=== PATIENT | male | born 1990 | race Caucasian/White ===

== ENCOUNTER 2018-05-30 17:59 | Emergency (ER) | payer BC, OTHER ==
[2018-05-30] MEDS ORDERED: Zofran 4 MG/2 ML VIAL IV ONE (18:16)
[2018-05-30] MEDS ORDERED: MORPHINE SULFATE 10 MG/ML ONE (18:16)
[2018-05-30] MEDS ORDERED: MORPHINE SULFATE 10 MG/ML IM ONE (18:16)
[2018-05-30] MEDS ORDERED: Sodium Chloride 0.9% 1000 ML 1,000 ML IV STA (18:16)
[2018-05-30] MEDS ORDERED: Zofran 4 MG/2 ML VIAL ONE (18:16)
--- NOTE | 2018-05-30 18:16 | ERPHSYRPT ---
- History of Present Illness Time Seen by Provider: 05/30/18 18:11 Source: patient, family Exam Limitations: clinical condition Physician History: The patient is a 27-year-old right-handed male with his complaining that he was thrown from his horse while in the barn just prior to arrival. He does not remember any of the event specifically. He complains of a headache. He thinks he was knocked unconscious. He complains of severe right shoulder pain. He is unable to move his right arm. He is mildly nauseated. Occurred: just prior to arrival Reason for Fall: lost balance, fell from height (from a horse) Injuries/Pain Location: head, upper extremity (right shoulder) Loss of Consciousness: brief (seconds) (unsure of duration) Quality: sharpness, stabbing Severity of Pain-Max: severe Severity of Pain-Current: severe Modifying Factors: Improves With: nothing Associated Symptoms (Fall): confusion, extremity injury, headache, nausea Allergies/Adverse Reactions: No Known Drug Allergies Allergy (Verified 05/30/18 18:22) Home Medications: No Reportable Medications [No Reported Medications] 05/30/18 [History] - Review of Systems Constitutional: No Fever, No Chills Eyes: No Symptoms Ears, Nose, & Throat: No Symptoms Respiratory: No Cough, No Dyspnea Cardiac: No Chest Pain, No Edema, No Syncope Abdominal/Gastrointestinal: No Abdominal Pain, No Nausea, No Vomiting, No Diarrhea Genitourinary Symptoms: No Dysuria Musculoskeletal: Fall, Injury Skin: No Rash Neurological: Headache Psychological: No Symptoms Endocrine: No Symptoms Hematologic/Lymphatic: No Symptoms Immunological/Allergic: No Symptoms All Other Systems: Reviewed and Negative - Nursing Vital Signs Nursing Vital Signs: Initial Vital Signs Pulse Rate 92 H 05/30/18 18:08 Blood Pressure 160/107 05/30/18 18:08 O2 Sat by Pulse Oximetry 99 05/30/18 18:08 Pain Scale Pain Intensity 10 - Derby Coma Score Best Eye Response (Amira): (4) open spontaneously Best Verbal Response (Amira): (5) oriented Best Motor Response (Der[place]): (6) obeys commands Amira Total: 15 - Physical Exam General Appearance: moderate distress Head Injury: no evidence of injury Eye Exam: PERRL/EOMI ENT Exam: airway nml Neck Exam: normal inspection, c-collar in place, No tenderness Respiratory/Chest Exam: normal breath sounds, No chest tenderness, No respiratory distress Cardiovascular Exam: normal heart sounds, regular rate/rhythm Gastrointestinal Exam: soft, No tenderness, No distention, No guarding, No ecchymosis Rectal Exam: not done Back Exam: normal inspection, No vertebral tenderness Extremity Exam: other (Examination of the right upper extremity: The patient is able to move his fingers, hand, and elbow. He is unable to move his arm at the shoulder joint. When I attempt to passively move his arm at the shoulder joint , he has experienced and normocephalic amounts of pain. He has pain to palpation of the shoulder joint. The left clavicle is nontender.) Neurologic Exam: alert, oriented x 3, cooperative, sensation nml, No motor deficits Skin Exam: abrasion (right shoulder) SpO2 Interpretation: normal Oxygen Delivery: Room Air Ordered Tests: Active Orders 24 hr Category Date Time Status Cervical Collar Application STAT Care 05/30/18 18:19 Active IV Insertion STAT Care 05/30/18 18:16 Active Medication Summary Generic Name Dose Route Start Last Admin Trade Name Freq PRN Reason Stop Dose Admin Sodium Chloride 1,000 mls @ 999 mls/hr 05/30/18 18:16 05/30/18 18:30 Sodium Chloride 0.9% 1000 Ml IV 05/30/18 19:16 999 mls/hr .Q1H1M STA Administration Discontinued Medications Generic Name Dose Route Start Last Admin Trade Name Freq PRN Reason Stop Dose Admin Sodium Chloride Confirm 05/30/18 18:17 Sodium Chloride 0.9% 1000 Ml Administered 05/30/18 18:18 Dose 1,000 mls @ ud .ROUTE .STK-MED ONE Morphine Sulfate 10 mg 05/30/18 18:16 05/30/18 18:36 Morphine Sulfate 10 Mg/Ml IM 05/30/18 18:17 Not Given STAT ONE Morphine Sulfate Confirm 05/30/18 18:16 Morphine Sulfate 10 Mg/Ml Administered 05/30/18 18:17 Dose 10 mg .ROUTE .STK-MED ONE Morphine Sulfate 10 mg 05/30/18 18:32 05/30/18 18:35 Morphine Sulfate 10 Mg/Ml IV 05/30/18 18:33 10 mg STAT ONE Administration Ondansetron HCl 4 mg 05/30/18 18:16 05/30/18 18:30 Zofran 4 Mg/2 Ml Vial IV 05/30/18 18:17 4 mg STAT ONE Administration Ondansetron HCl Confirm 05/30/18 18:16 Zofran 4 Mg/2 Ml Vial Administered 05/30/18 18:17 Dose 4 mg .ROUTE .STK-MED ONE - Progress Progress: improved Progress Note: 05/30/18 18:23 Pt given MSO4 10 mg, zofran 4 mg, and fluids by IV. Counseled pt/family regarding: diagnosis - Departure Time of Disposition: 18:39 Departure Disposition: Transfer (transfer to [facility] per Dr Morton) Clinical Impression: Fall, Loss of consciousness, Right shoulder pain Condition: Stable Critical Care Time: No
[2018-05-30] MEDS ORDERED: Sodium Chloride 0.9% 1000 ML 1,000 ML ONE ×2 (18:17→19:05)
[2018-05-30 18:21] VITALS: PULSE 92; O2SAT 99
[2018-05-30] MEDS ORDERED: MORPHINE SULFATE 10 MG/ML IV ONE (18:32)
[2018-05-30 18:57] VITALS: BP 164/93
== END 2018-05-30 19:14 | disposition short-term general hospital (02) ==
LOC: ED 17:59
DX: M25.511 Pain in right shoulder (principal); R51 Headache; R41.0 Disorientation, unspecified; R55 Syncope and collapse; R11.0 Nausea; V80.010A Animal-rider injured by fall from or being thrown from horse in noncollision accident, initial encounter; Y92.008 Other place in unspecified non-institutional (private) residence as the place of occurrence of the external cause
CPT/HCPCS: 96360; 96374; 96375; 99285; J2270; J2405; L0172

== ENCOUNTER 2018-10-22 18:15 | Inpatient (IN) | payer OTHER ==
[2018-10-22] MEDS ORDERED: TYLENOL EXTRA STRENGTH 500 MG PO PRN (18:27)
[2018-10-22] MEDS: Sodium Chloride 0.9% W/ 20 mEq KCl/LITER 1,000 ML IV SCH (20:02)
[2018-10-22] MEDS: VIBRAMYCIN 100 MG*** 100 MG in Dextrose 5%/Water IV Soln. 100ML PLUS BAG 100 ML IV SCH (20:02)
[2018-10-22] MEDS: Naprosyn 500 MG PO PRN (20:09)
[2018-10-22] MEDS: ROCEPHIN 2 Gm-D5w 50ML BAG** 2 G/50 ML IVPB IV SCH (21:00)
[2018-10-22] MEDS ORDERED: Cyclobenzaprine 10 MG PO ONE (21:11)
--- NOTE | 2018-10-23 | PCM.NOTE ---
Date and Time: 10/22/18 7154 Subjective Assessment: Patient was being treated as outpatient 10/21/18 for acute febrile illness with Tmax= 104 yesterday. Hx of recurrent tic exposure without rash. Other than progressive fatigue and myalgias over the past several weeks ,he has not had any focal symptoms. CBC, 10/21/18 showed a mild left shift WBC=6.2,Sodium 135, potassium 3.5 renal function and liver enzymes WNL. He was given IV NS with potassium in outpatient Infusion this afternoon and developed change in vision and mild headache and fever was 103.5. He was given ES Tylenol and when fever came down he was able to walk to the bathroom and was stable . Dizziness and foggy thinking cleared.I discussed his case with Infectious Dz ,Dr Woods who gave instructions for admit orders ,treatment for Tic borne illness with coverage for bacterial infection. Admit orders hand written.Post outpatient IV labs were drawn along with blood cultures. SEE 10/21/18 outpatient H&P and outpatient labs . Objective Exam General Appearance: moderate distress, lethargy, other Neurologic Exam: cooperative, normal mood/affect, nml cerebellar function, nml station & gait, sensation nml, other (patient is groggy,oriented to person place and month but does not know the day or date.C/O distant vision is starting to blurr,can read without difficulty at 2 feet away.) Skin Exam: warm (flushed), dry, other (flushed) Eye Exam: PERRL, EOMI, other (no photophobia) Ears, Nose, Throat Exam: pharyngeal erythema Neck Exam: non-tender, supple Lymphatic Exam: adenopathy, other (posterial cervical with few shotty nodes) Respiratory Exam: lungs clear, other (CXR wnl) Cardiovascular Exam: tachycardia, other (no murmur) Gastrointestinal/Abdomen Exam: soft, other (increased bowel sounds,fullness LUQ but nontender) Extremity Exam: normal range of motion, tenderness (muscle of extremities), other (tic bite pretibial red macule with dried heme 3mm diameter but no surrounding rash) Back Exam: CVA tenderness (right), vertebral tenderness (low dorsal right with paraspinal spasm dorsal lumbar right) Male Genitalia Exam: deferred Rectal Exam: deferred OBJECTIVE DATA Vital Signs: Vital Signs - 24 hr Temp Pulse Resp 10/22/18 18:44 100.0 F 100 H 20 Pain Assessment - Last Documented Pain Intensity 4 Pain Scale Used 0-10 Pain Scale Intake and Output: Intake & Output 10/20/18 10/21/18 10/22/18 10/23/18 11:59 11:59 11:59 11:59 Weight 97.522 kg
[2018-10-23] MEDS: Sodium Chloride 0.9% W/ 20 mEq KCl/LITER 1,000 ML IV SCH ×3 (04:18→19:32)
[2018-10-23 06:05] LABS: BASOPHIL % 0.3 % (0.0-0.4); Basophil (Absolute #) 0.01 (0-0.4); Eosinophil % 1.4 % (0.00-5.0); Eosinophil (Absolute #) 0.05 (0-0.5); Granulocyte Absolute (ANC) 1.75 (1.4-6.9); Granulocytes % 47.5 % (36.0-66.0); Hematocrit 39.5 % (42-50); Hemoglobin 12.9 gm/dl (12.5-18.0); Lymphocyte (Absolute #) 1.24 (1.0-4.6); Lymphocytes % 33.7 % (24.0-44.0); Mean Cell Volume 88.8 fl (78-100); Mean Corpuscular Hgb Concent. 32.7 g/dl (32-36); Mean Platelet Volume 10.8 fl (6-9.5); Monocyte (Absolute #) 0.63 (0.0-1.3); Monocytes % 17.1 % (0.0-12.0); Platelet Count 116 K/mm3 (150-450); Red Blood Count 4.45 M/mm3 (4.1-5.6); White Blood Count 3.7 K/mm3 (4.0-10.5)
[2018-10-23 06:18] LABS: ALBUMIN 3.5 g/dL (3.5-5.0); ALKALINE PHOSPHATASE 56 U/L (38-126); ANION GAP 12.1 MEQ/L (5-15); BLOOD UREA NITROGEN 10 mg/dL (9-20); CHLORIDE 105 mmol/L (98-107); Calcium 8.6 mg/dL (8.4-10.2); Carbon Dioxide 26 mmol/L (22-30); Creatinine 1 1.03 mg/dL (0.66-1.25); Glucose 92 mg/dL (74-106); Potassium 4.4 mmol/L (3.5-5.1); SGOT/AST 30 U/L (17-59); SGPT/ALT 34 U/L (0-50); SODIUM 139 mmol/L (137-145); Total Protein 6.4 g/dL (6.3-8.2)
[2018-10-23] MEDS: VIBRAMYCIN 100 MG*** 100 MG in Dextrose 5%/Water IV Soln. 100ML PLUS BAG 100 ML IV SCH ×2 (08:11→19:33)
[2018-10-23] MEDS: Naprosyn 500 MG PO PRN (08:16)
[2018-10-23] MEDS: ROCEPHIN 2 Gm-D5w 50ML BAG** 2 G/50 ML IVPB IV SCH ×2 (09:35→23:45)
[2018-10-23] MEDS: ANASPAZ 0.125 MG PO SCH ×2 (11:02→16:00)
--- NOTE | 2018-10-23 16:18 | XRAY ---
Indication: Right upper quadrant fullness. Thrombocytopenia. 2-dimensional abdominal sonogram performed. Comparison: None Visualized portions of the liver, pancreas, and spleen appear homogeneous in echogenicity. 13.1 cm splenomegaly. No ascites. Gallbladder normally distended with tiny solitary polyp. No gallstones, wall thickening, or pericholecystic fluid. Common bile duct measures 2.3 mm. No intrahepatic biliary distention. Both kidneys normal in reniform shape. Right kidney measures 10.3 x 4.6 x 5.7 cm and the left measures 12 x 5 x 5.1 cm. No solid/cystic renal mass or hydronephrosis. Abdominal aorta and IVC unremarkable. Impression: 1. Tiny gallbladder polyp. 2. Right kidney is smaller either developmental, vascular, or scarring from previous inflammation/infection. 3. Splenomegaly. 4. Remaining abdominal sonogram is negative.
--- NOTE | 2018-10-23 16:24 | PCM.NOTE ---
Date and Time: 10/23/18 1618 Subjective Assessment: Patient states he woke in the night and sheets were soaked from perspiration. States he does not feel as foggy in his thinking but is very lethargic, C/O diarrhea which he has chronically, 1 bout last night.Appetite is down.He understands he will have an MRI today and further US and xrays for his dorsal pain that has been a problem for 3-4 days. UA was normal at clinic day prior to admission. Urine and blood cultures were ordered.Fever is down on Naprosyn , will hold Naprosyn and tylenol to follow accurate temp. Continue IV rocephin and IV Doxycycline. Objective Exam General Appearance: lethargy Neurologic Exam: alert, normal mood/affect Skin Exam: normal color, other (no rash) Respiratory Exam: normal breath sounds, lungs clear Cardiovascular Exam: regular rate/rhythm, normal heart sounds Gastrointestinal/Abdomen Exam: soft (increased BS ,fullness LUQ abdomen nontender. There is right CVA tenderness and right mid lower dorsal paraspinal spasm 2-3+/4), other OBJECTIVE DATA Vital Signs: Vital Signs - 24 hr Temp Pulse Resp BP Pulse Ox 10/23/18 12:00 98.6 F 67 18 117/70 95 10/23/18 07:40 98.1 F 80 18 122/76 98 10/23/18 04:00 98.1 F 59 L 18 115/69 99 10/23/18 00:00 98.0 F 59 L 18 130/60 96 10/22/18 18:44 100.0 F 100 H 20 Pain Assessment - Last Documented Pain Intensity 2 Pain Scale Used 0-10 Pain Scale,FLACC Intake and Output: Intake & Output 10/21/18 10/22/18 10/23/18 10/24/18 11:59 11:59 11:59 11:59 Intake Total 1854 1633 Balance 1854 1633 Weight 97.522 kg Lab Results: Lab Results-Last 24 Hours 10/23/18 10/23/18 Range/Units 04:55 04:55 WBC 3.7 L (4.0-10.5) K/mm3 RBC 4.45 (4.1-5.6) M/mm3 Hgb 12.9 (12.5-18.0) gm/dl Hct 39.5 L (42-50) % MCV 88.8 (78-100) fl MCH 29.0 (26-32) pg MCHC 32.7 (32-36) g/dl RDW 14.0 (11.5-14.0) % Plt Count 116 L (150-450) K/mm3 MPV 10.8 H (6-9.5) fl Gran % 47.5 (36.0-66.0) % Eos # (Auto) 0.05 (0-0.5) Absolute Lymphs (auto) 1.24 (1.0-4.6) Absolute Monos (auto) 0.63 (0.0-1.3) Lymphocytes % 33.7 (24.0-44.0) % Monocytes % 17.1 H (0.0-12.0) % Eosinophils % 1.4 (0.00-5.0) % Basophils % 0.3 (0.0-0.4) % Absolute Granulocytes 1.75 (1.4-6.9) Basophils # 0.01 (0-0.4) Sodium 139 (137-145) mmol/L Potassium 4.4 (3.5-5.1) mmol/L Chloride 105 (98-107) mmol/L Carbon Dioxide 26 (22-30) mmol/L Anion Gap 12.1 (5-15) MEQ/L BUN 10 (9-20) mg/dL Creatinine 1.03 (0.66-1.25) mg/dL Estimated GFR > 60.0 ML/MIN Glucose 92 (74-106) mg/dL Calcium 8.6 (8.4-10.2) mg/dL Total Bilirubin 0.50 (0.2-1.3) mg/dL AST 30 (17-59) U/L ALT 34 (0-50) U/L Alkaline Phosphatase 56 (38-126) U/L Serum Total Protein 6.4 (6.3-8.2) g/dL Albumin 3.5 (3.5-5.0) g/dL Radiology Exams: Radiology Procedures Category Date Time Status MRI BRAIN W/O CONTRAST [MRI] Routine Exams 10/23/18 11:56 Taken THORACOLUMBAR SPINE Routine Exams 10/23/18 11:55 Taken UPPER ABDOMEN [US] Routine Exams 10/23/18 15:56 Taken Assessment/Plan (1) Abdominal fullness in left upper quadrant Current Visit: Yes Status: Acute Assessment & Plan: spleen US Code(s): R19.8 - OTH SYMPTOMS AND SIGNS INVOLVING THE DGSTV SYS AND ABDOMEN (2) Thrombocytopenia Current Visit: No Status: Acute (3) Tick borne fever Current Visit: Yes Status: Acute Assessment & Plan: responding to IV Doxy and Rocephin. Code(s): A93.8 - OTHER SPECIFIED ARTHROPOD-BORNE VIRAL FEVERS (4) Dorsal back pain Current Visit: Yes Status: Acute Assessment & Plan: significant pain keeps patient from resting - Renal US and spine xray Code(s): M54.9 - DORSALGIA, UNSPECIFIED
[2018-10-24] MEDS ORDERED: Cyclobenzaprine 10 MG PO PRN ×2 (00:28→06:30)
[2018-10-24] MEDS: CLARITIN 10 MG PO SCH ×2 (01:48→09:46)
[2018-10-24 06:09] LABS: BASOPHIL % 0.2 % (0.0-0.4); Basophil (Absolute #) 0.01 (0-0.4); Eosinophil % 2.2 % (0.00-5.0); Granulocytes % 71.1 % (36.0-66.0); Hematocrit 43.1 % (42-50); Hemoglobin 14.4 gm/dl (12.5-18.0); Lymphocyte (Absolute #) 0.76 (1.0-4.6); Lymphocytes % 16.9 % (24.0-44.0); Mean Cell Volume 86.7 fl (78-100); Mean Corpuscular Hgb Concent. 33.4 g/dl (32-36); Mean Platelet Volume 10.8 fl (6-9.5); Monocyte (Absolute #) 0.43 (0.0-1.3); Monocytes % 9.6 % (0.0-12.0); Platelet Count 122 K/mm3 (150-450); Red Blood Count 4.97 M/mm3 (4.1-5.6); Red Cell Distribution Width 13.7 % (11.5-14.0); White Blood Count 4.5 K/mm3 (4.0-10.5)
[2018-10-24] MEDS ORDERED: Sodium Chloride 0.9% 10 ML FLUSH Syringe IV PRN (06:30)
[2018-10-24 06:32] LABS: ALBUMIN 3.9 g/dL (3.5-5.0); ALKALINE PHOSPHATASE 62 U/L (38-126); ANION GAP 14.5 MEQ/L (5-15); BLOOD UREA NITROGEN 10 mg/dL (9-20); CHLORIDE 102 mmol/L (98-107); Calcium 9.1 mg/dL (8.4-10.2); Carbon Dioxide 26 mmol/L (22-30); Glucose 94 mg/dL (74-106); Potassium 3.8 mmol/L (3.5-5.1); SGOT/AST 36 U/L (17-59); SGPT/ALT 41 U/L (0-50); SODIUM 138 mmol/L (137-145)
[2018-10-24] MEDS: ANASPAZ 0.125 MG PO SCH ×4 (08:45→16:03)
[2018-10-24] MEDS: VIBRAMYCIN 100 MG*** 100 MG in Dextrose 5%/Water IV Soln. 100ML PLUS BAG 100 ML IV SCH ×2 (08:45→20:42)
--- NOTE | 2018-10-24 08:45 | XRAY ---
Indication: Lethargy, dizziness, and fever. Sagittal, coronal, and axial MRI brain was performed without contrast using T1, T2, FLAIR, diffusion, and ADC sequences. Comparison: None Ventriculosulcal pattern appears symmetric. No acute intracranial hemorrhage, abnormal extra-axial fluid collection, or mass effect. Diffusion images negative for restricted signal. Fourth ventricle is midline without hydrocephalus. 7/8 cranial nerve complex bilaterally symmetric. Normal flow void signal within the major intracerebral circulation. Normal appearing craniocervical junction and sella turcica. Paranasal sinuses are clear. Impression: Negative MRI brain without contrast exam.
--- NOTE | 2018-10-24 08:45 | XRAY ---
Indication: Mid to lower back pain. No known injury. Comparison: None AP/lateral spine centered at the thoracolumbar junction demonstrates normal alignment with vertebral body heights/disc spaces maintained. No bony, articular, or soft tissue abnormalities.
--- NOTE | 2018-10-24 09:00 | PCM.NOTE ---
Date and Time: 10/24/18851 Subjective Assessment: Pt had Tmax of 100.3 last night. He did have GONZALEZ last night which resolved with flexeril, tylenol, and claritin (also held IVF due to elevated BP of 160s systolic). He is still having mild R flank pain radiating down to his R lower back, 2/10 this morning. He is hungry. Urinating well. Has not been having stools (was having diarrhea previously). Denies visual changes. He notes that even so he feels "100% better" than when he was seen in outpatient clinic. - Review of Systems Constitutional: Other (temp to 100.3) Musculoskeletal: Back Pain Objective Exam General Appearance: no apparent distress, alert Neurologic Exam: oriented x 3, cooperative Skin Exam: normal color, warm, dry, No rash Ears, Nose, Throat Exam: moist mucous membranes Neck Exam: normal inspection, non-tender, No lymphadenopathy Respiratory Exam: normal breath sounds, lungs clear, No crackles/rales, No rhonchi, No wheezing Cardiovascular Exam: regular rate/rhythm, normal heart sounds, No murmur Gastrointestinal/Abdomen Exam: soft, normal bowel sounds, No tenderness, No distention, No mass, No guarding, No rebound Extremity Exam: No pedal edema, No swelling Back Exam: normal inspection, CVA tenderness (very mild on R), No rash OBJECTIVE DATA Vital Signs: Vital Signs - 24 hr Temp Pulse Resp BP Pulse Ox 10/24/18 07:12 98.3 F 88 20 129/78 97 10/24/18 04:00 99.9 F 97 H 18 142/76 97 10/23/18 23:57 99.7 F 79 19 162/76 99 10/23/18 20:00 98.9 F 81 19 136/75 97 10/23/18 16:00 86 18 131/67 97 10/23/18 12:00 98.6 F 67 18 117/70 95 Pain Assessment - Last Documented Pain Intensity 4 Pain Scale Used 0-10 Pain Scale,FLACC Intake and Output: Intake & Output 10/21/18 10/22/18 10/23/18 10/24/18 11:59 11:59 11:59 11:59 Intake Total 2833 5935 Balance 1854 5807 Weight 97.522 kg Lab Results: Lab Results-Last 24 Hours 10/24/18 10/24/18 Range/Units 04:00 05:15 WBC 4.5 (4.0-10.5) K/mm3 RBC 4.97 (4.1-5.6) M/mm3 Hgb 14.4 (12.5-18.0) gm/dl Hct 43.1 (42-50) % MCV 86.7 (78-100) fl MCH 29.0 (26-32) pg MCHC 33.4 (32-36) g/dl RDW 13.7 (11.5-14.0) % Plt Count 122 L (150-450) K/mm3 MPV 10.8 H (6-9.5) fl Gran % 71.1 H (36.0-66.0) % Eos # (Auto) 0.10 (0-0.5) Absolute Lymphs (auto) 0.76 L (1.0-4.6) Absolute Monos (auto) 0.43 (0.0-1.3) Lymphocytes % 16.9 L (24.0-44.0) % Monocytes % 9.6 (0.0-12.0) % Eosinophils % 2.2 (0.00-5.0) % Basophils % 0.2 (0.0-0.4) % Absolute Granulocytes 3.20 (1.4-6.9) Basophils # 0.01 (0-0.4) Sodium 138 (137-145) mmol/L Potassium 3.8 (3.5-5.1) mmol/L Chloride 102 (98-107) mmol/L Carbon Dioxide 26 (22-30) mmol/L Anion Gap 14.5 (5-15) MEQ/L BUN 10 (9-20) mg/dL Creatinine 0.90 (0.66-1.25) mg/dL Estimated GFR > 60.0 ML/MIN Glucose 94 (74-106) mg/dL Calcium 9.1 (8.4-10.2) mg/dL Total Bilirubin 0.50 (0.2-1.3) mg/dL AST 36 (17-59) U/L ALT 41 (0-50) U/L Alkaline Phosphatase 62 (38-126) U/L Serum Total Protein 7.0 (6.3-8.2) g/dL Albumin 3.9 (3.5-5.0) g/dL Radiology Exams: Radiology Procedures Category Date Time Status MRI BRAIN W/O CONTRAST [MRI] Routine Exams 10/23/18 11:56 Taken THORACOLUMBAR SPINE Routine Exams 10/23/18 11:55 Taken UPPER ABDOMEN [US] Routine Exams 10/23/18 15:56 Completed Assessment/Plan (1) Tick borne fever Current Visit: Yes Status: Acute Assessment & Plan: ON Rocephin 2g IV daily and doxycycline (day #3). Cultures are pending. Temp up to 100.3 last night (can be seen on nurses notes, not on vital signs). He is overall feeling better. He did not sleep well last night however. Advised he needs to stay here on antibiotics and getting labs until fevers are resolved and culture results are back, at least. RN spoke with lab- blood cultures ARE pending, but urine culture was never done from 10/22/18. I spoke with lab and confirmed that no urine culture has been done in the past 2 weeks. Code(s): A93.8 - OTHER SPECIFIED ARTHROPOD-BORNE VIRAL FEVERS (2) Gallbladder polyp Current Visit: Yes Status: Chronic Assessment & Plan: Tiny on imaging. May need outpatient followup. Code(s): K82.4 - CHOLESTEROLOSIS OF GALLBLADDER (3) Splenomegaly Current Visit: Yes Status: Acute Assessment & Plan: Discussed with pt, likely due to current illness, may need rechecked outpatient. Code(s): R16.1 - SPLENOMEGALY, NOT ELSEWHERE CLASSIFIED (4) Thrombocytopenia Current Visit: No Status: Acute Assessment & Plan: improved today, 122 up from 116. (5) Headache Current Visit: Yes Status: Resolved Qualifiers: Headache type: unspecified Headache chronicity pattern: acute headache Intractability: not intractable Qualified Code(s): R51 - Headache Assessment & Plan: MRI brain was negative. Code(s): R51 - HEADACHE (6) Flank pain Current Visit: Yes Status: Acute Assessment & Plan: Could just be musculoskeletal. At a low level currently. Unsure if related to the renal abnormality on the right; if persistent/worsening would consider nephrology referral. Code(s): R10.9 - UNSPECIFIED ABDOMINAL PAIN (7) Renal structural abnormality Current Visit: Yes Status: Chronic Assessment & Plan: Smaller R kidney. Renal function overall is great. Code(s): Q63.9 - CONGENITAL MALFORMATION OF KIDNEY, UNSPECIFIED
[2018-10-24] MEDS: ROCEPHIN 2 Gm-D5w 50ML BAG** 2 G/50 ML IVPB IV SCH ×2 (09:46→22:24)
[2018-10-24] MEDS: Sodium Chloride 0.9% 10 ML FLUSH Syringe IV SCH ×2 (14:05→22:53)
[2018-10-24] MEDS: Acidophilus TABLET PO SCH ×2 (14:44→22:24)
[2018-10-24] MEDS ORDERED: ULTRAM 50 MG PO PRN ×3 (17:12→18:08)
[2018-10-24] MEDS: Phenergan 25 MG INJ IV PRN (17:51)
[2018-10-25] MEDS: Sodium Chloride 0.9% 10 ML FLUSH Syringe IV SCH ×3 (05:26→21:00)
[2018-10-25 06:15] LABS: BASOPHIL % 0.3 % (0.0-0.4); Basophil (Absolute #) 0.01 (0-0.4); Eosinophil % 1.2 % (0.00-5.0); Eosinophil (Absolute #) 0.04 (0-0.5); Granulocyte Absolute (ANC) 2.07 (1.4-6.9); Hematocrit 43.4 % (42-50); Hemoglobin 14.3 gm/dl (12.5-18.0); Lymphocyte (Absolute #) 0.86 (1.0-4.6); Lymphocytes % 25.4 % (24.0-44.0); Mean Cell Volume 86.6 fl (78-100); Mean Corpuscular Hemoglobin 28.5 pg (26-32); Mean Corpuscular Hgb Concent. 32.9 g/dl (32-36); Mean Platelet Volume 10.8 fl (6-9.5); Monocyte (Absolute #) 0.41 (0.0-1.3); Monocytes % 12.1 % (0.0-12.0); Platelet Count 123 K/mm3 (150-450); Red Blood Count 5.01 M/mm3 (4.1-5.6); Red Cell Distribution Width 13.9 % (11.5-14.0); White Blood Count 3.4 K/mm3 (4.0-10.5)
[2018-10-25 06:59] LABS: ALBUMIN 4.2 g/dL (3.5-5.0); ALKALINE PHOSPHATASE 60 U/L (38-126); ANION GAP 16.5 MEQ/L (5-15); BLOOD UREA NITROGEN 11 mg/dL (9-20); CHLORIDE 98 mmol/L (98-107); Calcium 9.1 mg/dL (8.4-10.2); Carbon Dioxide 28 mmol/L (22-30); Creatinine 1 1.21 mg/dL (0.66-1.25); Glucose 92 mg/dL (74-106); Potassium 4.5 mmol/L (3.5-5.1); SGOT/AST 30 U/L (17-59); SGPT/ALT 37 U/L (0-50); SODIUM 138 mmol/L (137-145); Total Protein 7.3 g/dL (6.3-8.2)
[2018-10-25] MEDS: VIBRAMYCIN 100 MG*** 100 MG in Dextrose 5%/Water IV Soln. 100ML PLUS BAG 100 ML IV SCH ×2 (07:47→19:50)
[2018-10-25] MEDS: Acidophilus TABLET PO SCH ×3 (08:21→22:03)
[2018-10-25] MEDS: CLARITIN 10 MG PO SCH (08:22)
[2018-10-25] MEDS: ROCEPHIN 2 Gm-D5w 50ML BAG** 2 G/50 ML IVPB IV SCH (09:49)
[2018-10-25] MEDS: ANASPAZ 0.125 MG PO SCH ×3 (09:59→16:37)
[2018-10-25] MEDS: Phenergan 25 MG INJ IV PRN (12:16)
[2018-10-25] MEDS ORDERED: Sodium Chloride 0.9% 1000 ML 1,000 ML IV STA (15:42)
[2018-10-25] MEDS: KEFLEX 500 MG PO SCH (22:03)
[2018-10-25] MEDS: Naprosyn 500 MG PO PRN (22:03)
[2018-10-26 00:03] VITALS: O2SAT 99
[2018-10-26] MEDS: Sodium Chloride 0.9% 10 ML FLUSH Syringe IV SCH (06:11)
[2018-10-26 07:21] VITALS: BP 142/84; PULSE 61
[2018-10-26] MEDS: ANASPAZ 0.125 MG PO SCH (07:52)
[2018-10-26] MEDS ORDERED: Vibramycin 100 MG PO SCH ×3 (08:00→10:00)
[2018-10-26] MEDS: KEFLEX 500 MG PO SCH (09:55)
[2018-10-26] MEDS: Acidophilus TABLET PO SCH (09:55)
[2018-10-26] MEDS: CLARITIN 10 MG PO SCH (09:55)
--- NOTE | 2018-10-26 10:58 | PCM.DCORD ---
- Discharge Disposition: Home, Self-Care Condition: Stable Prescriptions: New Lactobacillus Acidophilus [Acidophilus TABLET] 1 tab PO TID #90 tablet Loratadine 10 mg [Claritin 10 mg] 10 mg PO DAILY #30 tablet Cephalexin Mh 500 mg [Keflex 500 mg] 500 mg PO QID 7 Days capsule Naproxen 500 mg [Naprosyn 500 MG] 500 mg PO BID PRN PRN #30 tablet PRN Reason: Pain Tramadol HCl 50 mg [Ultram 50 mg] 50 mg PO BID 7 Days #14 tablet Doxycycline Hyclate 100 mg [Vibramycin 100 MG] 100 mg PO Q12H 14 Days tab Additional Instructions: LIMIT YOUR ACTIVITY UNTIL YOU ARE FEVER FREE FOR 48 HOURS. LIMIT SUN EXPOSURE DUE TO ANTIBIOTICS. DRINK 2 32OZ GATORADES A DAY. DRINK 2 PROTEIN SHAKES/POWDER A DAY. Appt with Ophthamologist this Sunday [facility] with [facility],notify Dr Monsalve if symptoms worsen over the weekend [phone]. Follow up with: SYDNIE MONSALVE DO [Primary Care Provider] - 1 Week
--- NOTE | 2018-10-26 11:34 | PCM.NOTE ---
Date and Time: 10/25/18 1123 Patient had hoped to go home today but was dizzy while showering and feels weak when standing. No further diaphoresis/ night sweats.He has been in isolation and unable to walk to build his strength. He c/o eyes sensitive to light and distant vision is blurry but can read up close and 6 feet away.Back pain has improved. Appetite is poor.He is drinking water and Ensure(family will bring Gatbrianneid). States he is making himself eat a few bites of each item on food tray.No diarrhea today.No abdominal pain. - Review of Systems Constitutional: Fever (low grade), Fatigue, Lethargy Eyes: Photophobia, Vision Changes Respiratory: No Cough (some PND tickle cough helped with Claritin), No Short Of Breath Cardiac: No Chest Pain, No Edema, No Syncope Abdominal/Gastrointestinal: Appetite Changes Genitourinary Symptoms: Flank Pain (resolved), No Dysuria Musculoskeletal: Back Pain (improved) Skin: No Rash Objective Exam General Appearance: mild distress, anxiety (frustrated with extended illness and need to get family moved ,closed on home just before illness.), lethargy Neurologic Exam: alert, oriented x 3, cooperative, other (Negative Kernis sign, negative brudzinski sign,no gross neurologic defecits except decreased visual acuity for distane vision-reads up to 6-10 feet but blurred vision at 15-20 feet.Photophobia to overhead light.) Skin Exam: normal color, warm, dry (no rash) Eye Exam: PERRL, EOMI, photophobia Ears, Nose, Throat Exam: normal ENT inspection, moist mucous membranes Respiratory Exam: normal breath sounds, lungs clear, No respiratory distress Cardiovascular Exam: regular rate/rhythm, normal heart sounds Gastrointestinal/Abdomen Exam: soft (nontender.), splenomegaly (mild,confirmed by US but today less LUQ fullness,nontender today) Extremity Exam: other (no acute joint inflammation.) OBJECTIVE DATA Vital Signs: Vital Signs - 24 hr Temp Pulse Resp BP Pulse Ox 10/26/18 07:18 97.4 F 61 18 142/84 99 10/26/18 04:45 97.9 F 71 16 130/66 99 10/26/18 00:00 99.5 F 76 18 143/63 99 10/25/18 20:15 98.9 F 74 16 130/73 98 10/25/18 16:00 98.6 F 95 H 18 119/69 10/25/18 12:00 98.7 F 83 16 132/66 96 Pain Assessment - Last Documented Pain Intensity 0 Pain Scale Used 0-10 Pain Scale Intake and Output: Intake & Output 10/23/18 10/24/18 10/25/18 10/26/18 11:59 11:59 11:59 11:59 Intake Total 1854 4115 1900 3267 Balance 1854 4115 1900 3267 Weight 97.522 kg 97.522 kg Assessment/Plan (1) Tick borne fever Current Visit: Yes Status: Acute Assessment & Plan: continue IV Doxy and Rocephin until am blood cultures reported. No growth to date.Fever down from 104 degrees day of admission to low grade. Code(s): A93.8 - OTHER SPECIFIED ARTHROPOD-BORNE VIRAL FEVERS (2) Dorsal back pain Current Visit: Yes Status: Resolved Code(s): M54.9 - DORSALGIA, UNSPECIFIED (3) Abdominal fullness in left upper quadrant Current Visit: Yes Status: Resolved Assessment & Plan: resolved Code(s): R19.8 - OTH SYMPTOMS AND SIGNS INVOLVING THE DGSTV SYS AND ABDOMEN (4) Thrombocytopenia Current Visit: Yes Status: Acute Assessment & Plan: improving daily (5) Photophobia, bilateral Current Visit: Yes Status: Acute Assessment & Plan: present since onset of fever,not worse but will plan to see Ophthamologist Sunday as outpatient unless worsens. Code(s): H53.143 - VISUAL DISCOMFORT, BILATERAL
[2018-10-27 11:35] LABS: Anaplasma phagocytophilum Not Detected; Babesia Species by PCR Not Detected; Ehrlichia ewingii/canis by PCR Not Detected
[2018-10-27 16:14] LABS: Ehrlichia muris-like by PCR Not Detected
[2018-10-27 16:14] LABS: Rocky MT.Spotted Fever IgM <1:64 (<1:64)
== END 2018-10-26 11:35 | disposition home or self-care (01) | DRG 866 ==
LOC: ICU 18:15
PROVIDERS: ADMIT Family Medicine; ATTEND Family Medicine
DX: A93.8 Other specified arthropod-borne viral fevers (principal); R59.9 Enlarged lymph nodes, unspecified; E86.9 Volume depletion, unspecified; R51 Headache; R42 Dizziness and giddiness; R53.83 Other fatigue; D69.6 Thrombocytopenia, unspecified; M54.89 Other dorsalgia; K82.4 Cholesterolosis of gallbladder; R16.1 Splenomegaly, not elsewhere classified; Q63.9 Congenital malformation of kidney, unspecified; R19.8 Other specified symptoms and signs involving the digestive system and abdomen; H53.143 Visual discomfort, bilateral
CPT/HCPCS: 36415; 70450; 70551; 71046; 72080; 76700; 80053; 81001; 82607; 84443; 85025; 86308; 86617; 86618; 86644; 86645; 86663; 86665; 86757; 87040; 87651; 87798; 93041; 96360; 96361; 99211; J0696; J2550; A9270-GY

== ENCOUNTER 2024-04-24 11:59 | Emergency (ER) | payer OTHER ==
[2024-04-24 12:16] VITALS: PULSE 71; TEMP 98.9; O2SAT 99
--- NOTE | 2024-04-24 12:31 | ERPHSYRPT ---
- History of Present Illness Time Seen by Provider: 04/24/24 12:03 Source: patient Exam Limitations: no limitations Patient Subjective Stated Complaint: pt cut left hand second finger knuckle at the base while cutting meat off of a deer Triage Nursing Assessment: Pt brought self to the ER, hypertensive, denies pain, pulses normal, skin n/w/d, 1.5 cm laceration to the second finger first knuckle of the left hand, bleeding contolled, doesn't appear to be in any distress Physician History: 33 years old male updated with immunizations, right-handed dominant presented in the ER after he was cutting meat at home and accidentally got a laceration on the left second digit metacarpophalangeal joint area prior to arrival. There was bleeding initially but stopped with applying pressure. No difficulty movements of the interphalangeal joint and metacarpophalangeal joints. No loss of sensations. Patient does report having injury in the same knuckle last year where he had tendon laceration which was repaired with Dr. Goldstein. Has 2 cm curved laceration on the proximal side of the knuckle second digit metacarpophalangeal joint left hand. No spurting or oozing. No tendon laceration noticed. Distal neurovascular intact. Laceration is repaired. Patient is placed in premade splint. Recommended Tylenol ibuprofen and outpatient follow-up. Discussed signs symptoms of infection/wound care needing return to ER which she seems understanding. Stable for discharge. Allergies/Adverse Reactions: No Known Drug Allergies Allergy (Verified 04/24/24 12:16) Home Medications: No Reportable Medications [No Reported Medications] 04/24/24 [History] Hx Tetanus, Diphtheria Vaccination/Date Given: Yes Travel Risk - International Travel Have you traveled outside of the country in past 3 weeks: No - Emerging Infectious Disease Are you exhibiting symptoms associated with any current EIDs: No - Review of Systems Constitutional: No Symptoms Respiratory: No Symptoms Cardiac: No Symptoms Musculoskeletal: Injury Skin: Skin Lesions Neurological: No Symptoms Hematologic/Lymphatic: No Symptoms - Past Medical History Pertinent Past Medical History: Yes Neurological History: No Pertinent History ENT History: No Pertinent History Cardiac History: No Pertinent History Respiratory History: No Pertinent History Endocrine Medical History: No Pertinent History GI Medical History: No Pertinent History History: No Pertinent History Psycho-Social History: No Pertinent History Other Medical History: multiple concussions, possible back injuries surgery 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 - Past Surgical History Past Surgical History: Yes Neuro Surgical History: No Pertinent History Cardiac: No Pertinent History Respiratory: No Pertinent History Gastrointestinal: No Pertinent History Genitourinary: No Pertinent History Male Surgical History: Testicular Surgery Other Surgical History: left shoulder surgery, denervation of testicle - Social History Smoking Status: Never smoker Exposure to second hand smoke: No Drug Use: none Patient Lives Alone: No - Social Determinants of Health Will the patient participate in the screening: Yes Do you worry about a steady place to live?: No Do you have any problems with any of the following?: No known problems In the past 12 months,have you had to go without utilities?: No Transportation Issues: No Has anyone in your support network made you feel unsafe?: No Have you or anyone in your house had to go without enough: No - Nursing Vital Signs Nursing Vital Signs: Initial Vital Signs Temperature 98.9 F 04/24/24 12:09 Pulse Rate 71 04/24/24 12:09 Blood Pressure 166/93 04/24/24 12:09 O2 Sat by Pulse Oximetry 99 04/24/24 12:09 Pain Scale Pain Intensity 0 - Physical Exam General Appearance: no apparent distress Neck Exam: normal inspection, full range of motion Cardiovascular/Respiratory Exam: normal breath sounds, regular rate/rhythm Wrist Exam: normal inspection, non-tender, no evidence of injury, normal ROM Hand Exam: laceration, soft tissue tenderness Neuro/Tendon Exam: normal sensation, normal motor functions, normal tendon functions Mental Status Exam: alert, oriented x 3, cooperative Skin Exam: normal color SpO2 Interpretation: normal SpO2: 99 O2 Delivery: Room Air Procedures - Laceration/Wound Repair Left Dorsal Hand Time of Procedure: 12:29 Wound Location: Left, hand Wound Length (cm): 2 Wound's Depth, Shape: superficial Wound Explored: clean Irrigated: Yes Hibiclens Prep: Yes Anesthesia: 1% Lidocaine Volume Anesthetic (ccs): 2 Wound Repaired With: sutures Suture Size/Type: 4-0, ethilon Number of Sutures: 5 Layer Closure?: No Sterile Dressing Applied?: Yes Splint Applied?: Yes Type of Splint Applied: Premade Sling Applied?: No - Progress Progress: improved Progress Note: 04/24/24 12:30 33 years old male updated with immunizations, right-handed dominant presented in the ER after he was cutting meat at home and accidentally got a laceration on the left second digit metacarpophalangeal joint area prior to arrival. There was bleeding initially but stopped with applying pressure. No difficulty movements of the interphalangeal joint and metacarpophalangeal joints. No loss of sensations. Patient does report having injury in the same knuckle last year where he had tendon laceration which was repaired with Dr. Goldstein. Has 2 cm curved laceration on the proximal side of the knuckle second digit metacarpophalangeal joint left hand. No spurting or oozing. No tendon laceration noticed. Distal neurovascular intact. Is a superficial cut, I do not suspect any osseous injury, do not think needs imaging. Laceration is repaired. Patient is placed in premade splint. Recommended Tylenol ibuprofen and outpatient follow-up. Discussed signs symptoms of infection/wound care needing return to ER which she seems understanding. Stable for discharge. 04/24/24 12:30 Counseled pt/family regarding: diagnosis, need for follow-up Medical Desision Making - Diagnostic Testing Diagnostic test were ordered, analyzed, and reviewed by me: No - Risk of complications The pt has a mod risk of morbidity or mortality based on: Need for prescription drug management, Need for minor surgical intervention in patient with know risk factors - Departure Departure Disposition: Home Clinical Impression: Hand laceration Condition: Stable Critical Care Time: No Referrals: YI DWYER MD [Primary Care Provider] - Follow up with PCP 1 day Instructions: Laceration Repair With Stitches (DC) Additional Instructions: Take Tylenol/ibuprofen as needed. Intermittent ice application. Avoid exertional activities. Keep it clean and dry. Return to ER for increasing pain swelling, difficulty movements of the finger, discharge or if develop fever chills. Suture removal in 2 weeks.
[2024-04-24 12:39] VITALS: BP 130/86
== END 2024-04-24 12:59 | disposition home or self-care (01) ==
LOC: ED 11:59
DX: S61.211A Laceration without foreign body of left index finger without damage to nail, initial encounter (principal); W26.0XXA Contact with knife, initial encounter
CPT/HCPCS: 12001; 99282; 99283